=== PATIENT | male | born 1965 | race Asian ===

== ENCOUNTER 2023-06-06 10:09 | Emergency (ER) | payer OTHER ==
[~2023-06-06] VITALS: Ht 167.6 cm; Wt 68.0 kg
[2023-06-06 10:10] VITALS: TEMP 98.8
[2023-06-06 10:55] LABS: PLATELET COUNT 280 K/uL (142-355)
[2023-06-06 11:03] LABS: POTASSIUM 3.6 mmol/L (3.6-5.2)
[2023-06-06 13:19] VITALS: BP 100/103
[2023-06-12] MEDS ORDERED: QUET25TA2 PO (10:26)
[2023-06-12] MEDS ORDERED: NORVASC 5MG TAB PO (10:26)
[2023-06-12] MEDS ORDERED: SERT50TA PO (10:26)
== END 2023-06-06 13:19 | disposition still patient (30) ==
LOC: ED 10:09
PROVIDERS: Family Medicine
DX: F29 Unspecified psychosis not due to a substance or known physiological condition (principal); R44.0 Auditory hallucinations
CPT/HCPCS: 80053; 81000; 85027; 87635; 93005; 99285; U0003